=== PATIENT | female | born 1945 | race Caucasian/White ===

== ENCOUNTER 2023-04-28 08:23 | Outpatient (AMB) | payer MEDICARE, SELFPAY ==
--- NOTE | 2023-04-28 08:27 | MHC.OFFVIS ---
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 Patient states I have vertigo since 2018 24/ every day the only time it doesnt affect is when Im grounded or sitting dowm. Allergies nortriptyline Allergy (Unknown, Verified 04/28/23 08:31) Unknown oxycodone Allergy (Unknown, Verified 04/28/23 08:31) Unknown Medication List - Last Reconciled 04/28/23 by UYEN Harrington atorvastatin 40 mg PO DAILY cholecalciferol (vitamin D3) 25 mcg PO DAILY docusate sodium 100 mg PO DAILY levothyroxine 75 mcg PO DAILY metformin ER 500 mg PO BID metoprolol succinate ER 12.5 mg PO DAILY sodium citrate-citric acid 500-334 mg/5 mL 15 mL PO BID valsartan 240 mg PO DAILY HPI HPI Comments History of Present Illness Details Right-handed 77-yr-old female presents for neurological evaluation of: dizziness. Pt is accompanied by her , Valdo. Pt reports she started having dizziness in 2019. One day, she woke up, feeling like she could not get OOB, felt sick to her stomach, could not walk. She went immediately to [facility]- was treated for vertigo. From there, it subsided some but not fully but exacerbates at times. She describes the dizziness as a feeling of swaying, like she is trying to walk on a boat but she is not on a boat. If she stands up, she will feel dizzy and a bit lightheaded. Turning her head especially if she is in a store, can make her feel dizzy, off, overwhelmed by the lights and all the items. She has had approx 5 falls- a few she was bending over while gardening and her foot got stuck, another time she was at the bank when her foot got caught in a rut in the ground- she states she just does not know that she would fall. She has checked her BP at home for a few days- SBP 140s. Her valsartan dose was increased from 160mg qd to 240mg qd- but this has not had nay positive/negative effect. Dizziness is triggered by standing up, hot/humid days, weather changes, walking on the grass or uneven surfaces. She feels that taking the sodium citrate citri. exacerbates the dizziness. The dizziness is alleviated by holding onto something- grounding her ie holding onto the mike, the grocery cart, her husbands hands. She did have a PT vestibular eval x's 2- but this did not help. She did an 8 week course of PT for gait training about 3 yrs ago- which was helpful. Patient endorses: h/o migraine w/o aura- used to be more frequent but less often in the last few years, sleep difficulties- has GOVIND does not always use her CPAP (does not recall who her sleep provider is, her supplier is [facility]). And patient denies: diplopia, dysphagia, tremor, Brain MRI w/o, 02/2023 at [facility]: IMPRESSION: 1. Mild supratentorial white matter signal abnormality compatible with chronic microangiopathic/small vessel ischemic change. 2. Mild parenchymal volume loss/atrophy. 3. No posterior cranial fossa mass or mass effect. Any history of concussion or head injury? None Any history of significant musculoskeletal disorders? Denies nay usual neck pain Any history of cardiovascular disorders? HTN, HLD Any history of mood disorders? Anxiety Any history of coagulopathy disorders? None Any history of metabolic disorders? Diabetes- pt states it controlled- maybe not perfectly- last HgA1C 7.4%, h/o kidney stones. PFSH Surgical History (Updated 04/28/23 @ 08:35 by CORTEZ Montelongo) H/O: hysterectomy H/O breast biopsy H/O parathyroidectomy Hx of colonoscopy Family History (Updated 04/28/23 @ 08:36 by CORTEZ Montelongo) Father Cancer HTN (hypertension) Mother Cancer, colon HTN (hypertension) Diabetes Son HTN (hypertension) Diabetes Social History (Updated 04/21/23 @ 08:49 by CORTEZ Montelongo) Alcohol intake: never Patient Tobacco Use Status: Never used Tobacco Review of Systems Const All systems reviewed & are unremarkable except as noted in HPI and below Physical Exam Vital Signs: Last Vital Signs Pulse 82 04/28/23 08:30 BP 124/82 04/28/23 08:30 Pulse Ox 98 04/28/23 08:30 Oxygen Delivery Method Room Air 04/28/23 08:30 BMI result Body Mass Index 43.7 Const General: cooperative and no acute distress Orientation/consciousness: patient oriented x3 HEENT Head: Yes normocephalic Resp Effort & Inspection: normal respiratory effort and able to speak in complete sentences Neuro Other: Romberg- sways but does not lose balance. Able to stand slowly w/o using arms, slow steady gait, multiple steps to turn. General: patient oriented x3 and CN's II-XI intact bilaterally Motor exam (neuro): 5/5 motor strength present throughout Deep tendon reflexes (DTR's): Right triceps reflex intensity grade: 2+, Left triceps reflex intensity grade: 2+, Rt Biceps (C5, C6): 2+, Left biceps reflex intensity grade: 2+, Right brachioradialis reflex intensity grade: 2+, Left brachioradialis reflex intensity grade: 2+, Right patellar reflex intensity grade: 1+ and Left patellar reflex intensity grade: 1+ Plantar Reflex Responses: downgoing: bilateral Psych Appearance: grossly normal Mental Status: mental status grossly normal Speech and movement: Normal speech and movement present Affect: normal affect Attitude: cooperative Thought process: Normal thought process present Assessment & Plan Assessment & Plan (1) Dizziness: Code(s): R42 - Dizziness and giddiness (2) Lightheadedness: Code(s): R42 - Dizziness and giddiness Plan For not right in space dizziness and lightheadedness: Discussed diff dx- chronic BPPV, ? atypical chronic vestibular migraine. Brain MRI showed age-related cerbral volume loss and chronic microangiopathic changes. Try adding Gatorade, or similar electrolyte replacement drink, 16-20oz qd. Continue to use cane on uneven surfaces. Pt advised to try PT vestibular tx again- advised it may take a few sessions to fully assess or see results. f/u in 3 months or sooner or prn. Orders: Orders PT Evaluation and Treatment 04/28/23 R42 - Dizziness and giddiness Coding Level of Care Code New Pt Level 4 (36989) Diagnoses Dizziness R42 Lightheadedness R42
[2023-04-28 08:30] VITALS: BP 124/82; PULSE 82; O2SAT 98; BMI 43.7
== END 2023-04-28 09:56 | disposition home or self-care (01) ==
PROVIDERS: PCP Family Medicine; Visit Provider Nurse Practitioner Family
DX: R42 Dizziness and giddiness (principal)
CPT/HCPCS: 99204

== ENCOUNTER → 2023-04-28 08:23 | Outpatient (BNVA) | payer MEDICARE, SELFPAY | PROVIDERS: PCP Family Medicine; Visit Provider Nurse Practitioner Family ==

== ENCOUNTER 2023-08-12 07:52 | Outpatient (AMB) | payer MEDICARE, SELFPAY ==
--- NOTE | 2023-08-12 07:57 | MHC.OFFVIS ---
Intake Vital Signs 08/12/23 07:58 Height 5 ft 1 in Weight 236 lb BMI 44.6 BP 140/78 H Blood Pressure Location Rt brachial Position Sitting Pulse 81 Pulse Source Pulse Oximeter Pulse Oximetry (%) 98 Oxygen Delivery Method Room Air Intake Visit Reasons: 3 mon f/v-[id number] Intake Note: Patient presents for 3 month follow up dizziness. I't's better since Im going to rehab, they are wonderful Allergies nortriptyline Allergy (Unknown, Verified 08/12/23 08:00) Unknown oxycodone Allergy (Unknown, Verified 08/12/23 08:00) Unknown HPI HPI Comments History of Present Illness Details 78-yr-old female presents for f/u visit, accompanied by her Pt denies any significant interval medical changes. Dizziness is better since doing PT. She may have some dizziness when she has a mild headache - more so when she there are weather changes. She had one interval fall- around the time she started PT, was going around a couch- per , when her feet crossed and then she just fell forward. Maybe she was a bit dizzy. Her had to help her get up, he was concerned as it was difficult to pull her up off the ground. Otherwise, her walking is better- not shuffling as much. She notes that her PT has helped her to breathe more consciously when walking- which helps her to be able to walk better, even w/o the cane. She is trying to be more mindful of turning her head slowly- as this can trigger dizziness or is worried that it will trigger dizziness. She can still have orthostatic lightheadedness- but pauses upon standing which helps. May need an efternoon power nap/rest- as she gets tired, more liekly to shuffle when tired in the afternoon. PFSH Surgical History H/O: hysterectomy H/O breast biopsy H/O parathyroidectomy Hx of colonoscopy Family History Father Cancer HTN (hypertension) Mother Cancer, colon HTN (hypertension) Diabetes Son HTN (hypertension) Diabetes Social History Alcohol intake: never Patient Tobacco Use Status: Never used Tobacco Review of Systems Const All systems reviewed & are unremarkable except as noted in HPI and below Physical Exam Vital Signs: Last Vital Signs Pulse 81 08/12/23 07:58 BP 140/78 H 08/12/23 07:58 Pulse Ox 98 08/12/23 07:58 Oxygen Delivery Method Room Air 08/12/23 07:58 BMI result Body Mass Index 44.6 Const General: cooperative and no acute distress Orientation/consciousness: patient oriented x3 HEENT Head: Yes normocephalic Resp Effort & Inspection: normal respiratory effort and able to speak in complete sentences Neuro Other: Stands slowly, better stride, steady gait w/o cane. General: patient oriented x3 and CN's II-XI intact bilaterally Cognition (Neuro): normal cognition Motor exam (neuro): 5/5 motor strength present throughout Psych Appearance: grossly normal Mental Status: mental status grossly normal Speech and movement: Normal speech and movement present Affect: normal affect Attitude: cooperative Thought process: Normal thought process present Assessment & Plan Assessment & Plan (1) Dizziness: Code(s): R42 - Dizziness and giddiness (2) Lightheadedness: Code(s): R42 - Dizziness and giddiness Plan For not right in space dizziness, lightheadedness, gait diff: Continue PT, PT exercises. Stand and change positions slowly Advised pt to ask her PT for tips on rising from a fall Gatorade, or similar electrolyte replacement drink, 16-20oz qd. Continue to use cane on uneven surfaces. f/u in 4-5 months or sooner or prn. Coding Level of Care Code Est Pt Level 3 (27734) Diagnoses Dizziness R42 Lightheadedness R42
[2023-08-12 07:58] VITALS: BP 140/78; PULSE 81; O2SAT 98; BMI 44.6
== END 2023-08-12 08:56 | disposition home or self-care (01) ==
PROVIDERS: PCP Family Medicine; Visit Provider Nurse Practitioner Family
DX: R42 Dizziness and giddiness (principal)
CPT/HCPCS: 99213

== ENCOUNTER → 2023-08-12 07:52 | Outpatient (BNVA) | payer MEDICARE, SELFPAY | PROVIDERS: PCP Family Medicine; Visit Provider Nurse Practitioner Family | DX: R42 Dizziness and giddiness (principal) | CPT/HCPCS: 99212 ==

== ENCOUNTER 2023-12-24 07:50 | Outpatient (AMB) | payer MEDICARE, SELFPAY ==
[2023-12-24 07:52] VITALS: BP 138/70; PULSE 77; O2SAT 99; BMI 42.1
--- NOTE | 2023-12-24 07:52 | A.OFFVIS_ITS ---
Vital Signs 12/24/23 07:52 Height 5 ft 1 in Weight 223 lb BMI 42.1 BP 138/70 Blood Pressure Location Rt brachial Position Sitting Pulse 77 Pulse Source Pulse Oximeter Pulse Oximetry (%) 99 Oxygen Delivery Method Room Air Intake Visit Reasons: 4M follow up-LVM Intake Note: Patient presents for 4 month follow up. Allergies nortriptyline Allergy (Unknown, Verified 12/24/23 07:55) Unknown oxycodone Allergy (Unknown, Verified 12/24/23 07:55) Unknown HPI Comments Details: 78-yr-old female presents for f/u visit. Pt denies any significant interval medical changes. Pt reports she recently had adjustments to her BP med regimen d/t BP was running higher. She still has dizziness and lightheadedness, feels she is better able to manage it now. She can be lightheaded upon standing. She tried Gatorade- found the it to have to much sugar. She has not had any severe bouts of dizziness a/w N/V. Pt reports her gait is better since she completed PT. She is not shuffling any more. She is intentionally breathing and picking up her feet while walking. She is usually able to walk w/o a cane. She may need to use her cane more when it is more humid or a storm is coming (in the winter as well)- as this triggers more dizziness/lightheadedness. She endorses some sensitivity to light. She states she does not have a lot of headaches anymore. Has a h/o migraine a/w photophobia and activity intolerance- usually r/t menses- but decreased and then stopped once she went through menopause. She has diabetes- she is able to feel the ground when walking. PFSH Surgical History H/O: hysterectomy H/O breast biopsy H/O parathyroidectomy Hx of colonoscopy Family History Father Cancer HTN (hypertension) Mother Cancer, colon HTN (hypertension) Diabetes Son HTN (hypertension) Diabetes Social History Alcohol intake: never Patient Tobacco Use Status: Never used Tobacco Physical Exam Vital Signs: Last Vital Signs Pulse 77 12/24/23 07:52 BP 138/70 12/24/23 07:52 Pulse Ox 99 12/24/23 07:52 Oxygen Delivery Method Room Air 12/24/23 07:52 BMI result Body Mass Index 42.1 Const General: cooperative and no acute distress Orientation/consciousness: patient oriented x3 Resp Effort & Inspection: normal respiratory effort and able to speak in complete sentences Neuro Other: Finger-Nose Intact Stands slowly, short, wide based gait- steady w/wo cane. General: patient oriented x3 Cranial nerves: Yes CN's II-XII intact bilaterally Cognition (Neuro): normal cognition Psych Appearance: grossly normal Mental Status: mental status grossly normal Speech and movement: Normal speech and movement present Affect: normal affect Attitude: cooperative Assessment & Plan Assessment & Plan (1) Dizziness: Code(s): R42 - Dizziness and giddiness Category: Medical (2) Lightheadedness: Code(s): R42 - Dizziness and giddiness Category: Medical Plan For not right in space dizziness, lightheadedness, gait diff: Discussed that as pt reports she has increased dizziness w/ humidity and barometric changes and a h/o migraine- this raises possibility that at least some component of her s/s may be d/t an atypical vestibular migraine w/o head ache. Pt is on metoprolol- which may confound presenting migraine tx. She did not tolerate Gatorade. Try alternate sugar-free electrolyte replacement drink, 16-20oz qd. If this is ineffective, consider trying acute/preventive vestibular migraine tx. Continue PT exercises. Pt encouraged to try a local excercise class for older adults- such as at the [facility] or her local senior centers. Stand and change positions slowly Continue to use cane on uneven surfaces. Future considerations- trial of amitryptiline or sertraline w/wo a gepant. f/u in 4-5 months or sooner or prn. Coding Level of Care Code Est Pt Level 4 (89389) Diagnoses Dizziness R42 Lightheadedness R42
== END 2023-12-24 09:04 | disposition home or self-care (01) ==
PROVIDERS: PCP Family Medicine; Visit Provider Nurse Practitioner Family
DX: R42 Dizziness and giddiness (principal)
CPT/HCPCS: 99214

== ENCOUNTER → 2023-12-24 07:50 | Outpatient (BNVA) | payer MEDICARE, SELFPAY | PROVIDERS: PCP Family Medicine; Visit Provider Nurse Practitioner Family | DX: R42 Dizziness and giddiness (principal) | CPT/HCPCS: 99212 ==

== ENCOUNTER 2024-10-11 09:42 | Outpatient (AMB) | payer MEDICARE, SELFPAY ==
[2024-10-11 10:10] VITALS: BP 142/80; PULSE 85; O2SAT 97; BMI 40.8
--- NOTE | 2024-10-11 10:10 | A.OFFVIS_ITS ---
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 Patient is accompanied by her Pt denies any significant interval medical changes. Pt reports she is overall doing better. Her feels that dizziness symptoms may not be better, however she is better able to manage. She still has dizziness and lightheadedness, feels she is still better able to manage it now. She is trying to drink better, now taking more water, maybe up to 48 oz a day. feels she could drink more fluids. She does like fruits such as watermelon in the warmer weather. She can be lightheaded upon standing= tries to stand up slowly and cause before moving. She has not had any severe bouts of dizziness a/w N/V. Pt reports her gait is better since she completed PT. She is not shuffling any more. She is intentionally breathing and picking up her feet while walking. She does her home PT exercises almost every morning. She is usually able to walk w/o a cane. Though may use a walking stick when walking in her backyard. She may need to use her cane more when it is more humid or a storm is coming (in the winter as well)- as this triggers more dizziness/lightheadedness. She states she is not as sensitive to light She states she does not have a lot of headaches anymore. Has a h/o migraine a/w photophobia and activity intolerance- usually r/t menses- but decreased and then stopped once she went through menopause. She has diabetes- she is still able to feel the ground when walking. PFSH Surgical History H/O: hysterectomy H/O breast biopsy H/O parathyroidectomy Hx of colonoscopy Family History Father Cancer HTN (hypertension) Mother Cancer, colon HTN (hypertension) Diabetes Son HTN (hypertension) Diabetes Social History Alcohol intake: never Patient Tobacco Use Status: Never used Tobacco Physical Exam Vital Signs: Last Vital Signs Pulse 85 10/11/24 10:10 BP 142/80 H 10/11/24 10:10 Pulse Ox 97 10/11/24 10:10 Oxygen Delivery Method Room Air 10/11/24 10:10 BMI result Body Mass Index 40.8 Const General: cooperative and no acute distress Orientation/consciousness: patient oriented x3 Resp Effort & Inspection: normal respiratory effort and able to speak in complete sentences Neuro Other: Finger-Nose Intact BUE and BLE light touch sensation intact Stands slowly, short, wide based gait- steady w/wo cane. General: patient oriented x3 Cranial nerves: Yes CN's II-XII intact bilaterally Cognition (Neuro): normal cognition Motor exam (neuro): 5/5 motor strength present throughout Psych Appearance: grossly normal Mental Status: mental status grossly normal Speech and movement: Normal speech and movement present Affect: normal affect Attitude: cooperative Assessment & Plan Assessment & Plan (1) Dizziness: Code(s): R42 - Dizziness and giddiness Category: Medical (2) Lightheadedness: Code(s): R42 - Dizziness and giddiness Category: Medical Plan For not right in space dizziness, lightheadedness, gait diff: Improved, however as pt reports she has increased dizziness w/ humidity and barometric changes and a h/o migraine- this raises possibility that at least some component of her s/s may be d/t an atypical vestibular migraine w/o headache. Pt is on metoprolol- which may confound presenting migraine tx. She previously did not tolerate Gatorade. Try to increase fluid intake to at 64 oz per day. This may include water, occasional coffee use, and hi water content fruits and vegetables. If symptoms worsened, consider trying acute/preventive vestibular migraine tx. Continue home PT exercises. Stand and change positions slowly Continue to use cane or walking stick on uneven surfaces. Future considerations- trial of amitryptiline or sertraline w/wo a gepant. f/u in 12 months or sooner or prn. Coding Level of Care Code Est Pt Level 3 (83903) Diagnoses Dizziness R42 Lightheadedness R42
--- OUTSIDE RECORDS SUMMARY | 2024-10-11 10:37 | XMS_ITS | Clinical Summary ---
Author Organization [facility] Address [address] [facility] [address] [place] [address] Phone Care Team Providers Care Leather Sponger Name Role Phone Humza Gan Primary Care Provider [phone] Allergies Active Allergy Reactions Criticality Noted Date Comments Lisinopril Other (see comments) 08/15/2021 Nortriptyline 08/15/2021 Other Other (see comments) 08/15/2021 Oxycodone 08/15/2021 Medications aspirin (Bora Aspirin EC Low Dose) 81 MG EC tablet Comments: Patient Notes: TAKE 1 TABLET BY MOUTH EVERY DAY Duration: 30 Active levothyroxine (SYNTHROID, LEVOTHROID) 75 MCG tablet Take 75 mcg by mouth 04/06/2021 Active potassium citrate 10 MEQ (1080 MG) CR tablet 08/02/2021 Active Cholecalciferol 50 MCG (2000 UT) capsule Take 1 capsule by mouth 1 (one) time each day Active docusate sodium (Colace) 100 MG capsule Take 100 mg by mouth 11/01/2020 Active metoprolol succinate XL (TOPROL XL) 25 MG 24 hr tablet Take 1 tablet by mouth 1 (one) time each day Active atorvastatin (LIPITOR) 40 MG tablet TAKE 1 TABLET BY MOUTH EVERY DAY FOR 90 DAYS 08/24/2022 Active metFORMIN XR (GLUCOPHAGE-XR) 500 MG 24 hr tablet Take 1,500 mg by mouth 3 (three) times a week 10/24/2023 Active valsartan (Diovan) 320 MG tablet Take 1 tablet (320 mg total) by mouth 1 (one) time each day 90 tablet 3 10/29/2023 Active Active Problems Problem Noted Date Diagnosed Date Patient encounter status 09/11/2022 Arthritis 08/15/2021 Essential hypertension 08/15/2021 Chronic kidney disease stage 3 08/15/2021 Disorder of carotid artery 08/15/2021 Overview (08/15/2021): [facility] vascular Vertigo 08/15/2021 Gastro-esophageal reflux disease with esophagiti s 08/15/2021 Hyperlipidemia 08/15/2021 Malignant neoplasm of thyroid gland 08/15/2021 Overview (08/15/2021): papillary Morbid obesity 08/15/2021 Papillary thyroid carcinoma 08/15/2021 Sleep apnea 08/15/2021 Overview (08/15/2021): CPAP Type 2 diabetes mellitus 08/15/2021 Encounters Date Type Department Care Team Description 10/06/2024 1:30 PM EST Office Visit [facility] [address] [place] [address] Osmel Baker MD Chronic kidney disease, stage 2 (mild) (Primary Dx); Hypertension; Nephrolithiasis 09/27/2024 Orders Only [facility] [address] [phone] Osmel Baker MD from Last 3 Months Immunizations Name Administration Dates Next Due Influenza Split High Dose Pr eservative Free IM 2017,04/23/2016 Influenza Vaccine, Quadrival ent, Adjuvanted 04/18/2021 Influenza Whole 05/17/2019 Influenza, Quadrivalent, Pre servative Free 05/13/2019 Influenza, Trivalent, Adjuvanted 04/28/2018 Influenza, Unspecified 04/19/2022,2020,05/13/2019,04/28,2017,04/23/2016 Pfizer SARS-COV-2 12/12/2021,,10/31/2020,10/13 Pneumococcal Conjugate 13-Valent 11/24/2014 Pneumococcal Polysaccharide 07/04/2011 SARS-CoV-2, Unspecified 06/03/2022 Family History Relation Status Comments Father Mother Social History Tobacco Use Types Packs/Day Years Used Date Smoking Tobacco: Never Smokeless Tobacco: Never Tobacco Cessation:Counseling Given: No Alcohol Use Standard Drinks/Week Comments No 0 (1 standard drink = 0.6 oz pur e alcohol) Comments Unknown Sex and Gender Information Value Date Recorded Sex Assigned at Not on file Legal Sex Female 4:54 PM EST Gender Identity Not on file Sexual Orientation Not on file Last Filed Vital Signs Vital Sign Reading Time Taken Comments Blood Pressure 127/70 10/06/2024 1:12 PM EST Pulse 89 10/06/2024 1:12 PM EST Temperature - - Respiratory Rate - - Oxygen Saturation 96% 08/15/2021 2:12 PM EST Inhaled Oxygen Concentration - - Weight 96.6 kg (213 lb) 10/06/2024 1:12 PM EST Height 154.9 cm (5' 1 ) 12/23/2018 12:00 PM EDT Body Mass Index 40.25 12/23/2018 12:00 PM EDT Plan of Treatment Upcoming Encounters Date Type Department Care Team (Late st Contact Info) Description 10/28/2024 Orders Only [facility] [address] [phone] Osmel Baker MD [facility] [address] [phone] Chronic kidney disease, stage 2 (mild) 10/05/2025 1:15 PM EST Office Visit [facility] [address] [place] [address] Osmel Baker MD [address] [place] [phone] Health Maintenance Due Date Last Done Comments Diabetes: Hemoglobin A1C 09/03/2020 Diabetes: Ophthalmology Exam 09/03/2020 Diabetes: Pedal Pulse Checked 09/03/2020 Diabetes: Sensory Foot Exam 09/03/2020 Diabetes: Visual Foot Exam 09/03/2020 Influenza Vaccine (#1) 2024 2, 04/18/2021, 04/18/2021, Additional history exists Pneumococcal Vaccine: 65+ Years Completed 11/24/2014, 07/04/2011 Hepatitis B Vaccine Aged Out No longe r eligible based on patient's age to complete this topic Procedures Procedure Name Priority Date/Time Associated Diagnosis Comments URINE ALBUMIN / CREATININE RATIO Routine 09/27/2024 6:16 AM EST RENAL FUNCTION PANEL Routine 09/27/2024 6:16 AM EST from Last 3 Months Results * Urine Albumin / Creatinine Ratio (09/27/2024 6:16 AM EST) Creatinine, Ur 178.9 Not Estab. mg/dL [facility] Albumin, Urine 24.0 Not Estab. ug/mL [facility] Albumin/Creatin ine Ratio 13 0 - 29 mg/g creat [facility] Comment: ? Normal: ?0 - ??29 ? Moderately increased: 30 - 300 ? Severely increased: ? >300 09/27/2024 6:16 AM EST 09/27/2024 us Osmel Baker MD LAB URINE ORDERABLES Final Resul t [email or web address] [address] [place] [address] * (ABNORMAL) Renal Function Panel (09/27/2024 6:16 AM EST) Glucose 155(H) 70 - 99 mg/dL [facility] BUN 20 8 - 27 mg/dL [facility] Creatinine 0.88 0.57 - 1.00 mg/dL [facility] eGFR CKD-EPI CR 2020 67 >59 mL/min/1.7 3 [facility] BUN/Creatinine Ratio 23 12 - 28 [facility] Sodium 142 134 - 144 mmol/L [facility] Potassium 4.4 3.5 - 5.2 mmol/L [facility] Chloride 105 96 - 106 mmol/L [facility] Bicarbonate (CO2) 20 20 - 29 mmol/L [facility] Calcium 9.3 8.7 - 10.3 mg/dL [facility] Albumin 4.3 3.8 - 4.8 g/dL [facility] Phosphorus 3.2 3.0 - 4.3 mg/dL [facility] 09/27/2024 6:16 AM EST 09/27/2024 Osmel Baker MD LAB BLOOD ORDERABLES Final Resul t [facility] [address] [place] [phone] from Last 3 Months Insurance MEDICARE [facility] MEDICARE [facility] Care Teams Leather Sponger Relationship Specialty Start Date End Date Humza Gna DO [address] [place] [address] PCP - General 08/14/20
--- OUTSIDE RECORDS SUMMARY | 2024-10-11 10:37 | XMS_ITS | Encounter Summary ---
Author Organization [facility] Address [address] [phone] Phone Care Team Providers Care Turn Down Attendant Name Role Phone Humza Gan Primary Care Provider [phone] Encounter Details Date Type Department Care Team (Late st Contact Info) Description 09/27/2024 Orders Only [facility] [address] [phone] Osmel Baker MD [address] [phone] Social History Tobacco Use Types Packs/Day Years Used Date Smoking Tobacco: Never Smokeless Tobacco: Never Alcohol Use Standard Drinks/Week Comments No 0 (1 standard drink = 0.6 oz pur e alcohol) Comments Unknown Sex and Gender Information Value Date Recorded Sex Assigned at Not on file Legal Sex Female 4:54 PM EST Gender Identity Not on file Sexual Orientation Not on file documented as of this encounter Plan of Treatment Upcoming Encounters Date Type Department Care Team (Late st Contact Info) Description 10/28/2024 Orders Only [facility] [place] [address] [place] [phone] Osmel Baker MD [address] [phone] Chronic kidney disease, stage 2 (mild) 10/05/2025 1:15 PM EST Office Visit [facility] [address] [place] [phone] Osmel Baker MD [address] [phone] documented as of this encounter Procedures Procedure Name Priority Date/Time Associated Diagnosis Comments URINE ALBUMIN / CREATININE RATIO Routine 09/27/2024 6:16 AM EST RENAL FUNCTION PANEL Routine 09/27/2024 6:16 AM EST documented in this encounter Results * Urine Albumin / Creatinine Ratio (09/27/2024 6:16 AM EST) Creatinine, Ur 178.9 Not Estab. mg/dL [facility] Albumin, Urine 24.0 Not Estab. ug/mL [facility] Albumin/Creatin ine Ratio 13 0 - 29 mg/g creat [facility] Comment: ? Normal: ?0 - ??29 ? Moderately increased: 30 - 300 ? Severely increased: ? >300 09/27/2024 6:16 AM EST 09/27/2024 Osmel Baker MD LAB URINE ORDERABLES Final Resul t [facility] [address] [place] [phone] * (ABNORMAL) Renal Function Panel (09/27/2024 6:16 AM EST) Glucose 155(H) 70 - 99 mg/dL [facility] BUN 20 8 - 27 mg/dL [facility] Creatinine 0.88 0.57 - 1.00 mg/dL [facility] eGFR CKD-EPI CR 2020 67 >59 mL/min/1.7 3 [facility] BUN/Creatinine Ratio 23 12 - 28 [facility] Sodium 142 134 - 144 mmol/L [facility] Potassium 4.4 3.5 - 5.2 mmol/L [facility] Chloride 105 96 - 106 mmol/L [facility] Bicarbonate (CO2) 20 20 - 29 mmol/L [facility] Calcium 9.3 8.7 - 10.3 mg/dL [facility] Albumin 4.3 3.8 - 4.8 g/dL [facility] Phosphorus 3.2 3.0 - 4.3 mg/dL [facility] 09/27/2024 6:16 AM EST 09/27/2024 us Osmel Baker MD LAB BLOOD ORDERABLES Final Resul t [facility] [address] [place] [address] documented in this encounter Visit Diagnoses Not on filedocumented in this encounter Care Teams Turn Down Attendant Relationship Specialty Start Date End Date Humza Gan DO [address] [place] [phone] PCP - General 08/14/20 documented as of this encounter
--- OUTSIDE RECORDS SUMMARY | 2024-10-11 10:37 | XMS_ITS | Encounter Summary ---
Author Organization [facility] Address [address] [place] [phone] Phone Care Team Providers Care Field Logistics Coordinator Name Role Phone Humza Gan Primary Care Provider [phone] Reason for Visit * Reason Comments Chronic Kidney Disease Encounter Details Date Type Department Care Team (Late st Contact Info) Description 10/06/2024 1:30 PM EST Office Visit [facility] [address] [place] [address] Osmel Baker MD [address] [phone] Chronic kidney disease, stage 2 (mild) (Primary Dx); Hypertension; Nephrolithiasis Social History Tobacco Use Types Packs/Day Years [...] on file documented as of this encounter Last Filed Vital Signs Vital Sign Reading Time Taken Comments Blood Pressure 127/70 10/06/2024 1:12 PM EST Pulse 89 10/06/2024 1:12 PM EST Temperature - - Respiratory Rate - - Oxygen Saturation - - Inhaled Oxygen Concentration - - Weight 96.6 kg (213 lb) 10/06/2024 1:12 PM EST Height - - Body Mass Index 40.25 12/23/2018 12:00 PM EDT documented in this encounter Progress Notes * Osmel Baker MD - 10/06/2024 1:30 PM EST [facility] Patient Name: Richa Espinal, Female Date of : 1945, 79 y.o. Date: 10/06/2024 Referring MD: Humza Gan DO PCP: Humza Gan DO Chief Complaint: Chief Complaint Patient presents with Chronic Kidney Disease Reason For Visit: I had there pleasure of seeing your patient for follow up of CKD. The following portions of the patient's chart were reviewed in this encounter and updated as appropriate: Allergies Meds Problems Med Hx Surg Hx Fam Hx Constitutional: Negative for chills, fever, malaise/fatigue and weight loss. HENT: Negative for ear pain, hearing loss and tinnitus. Eyes: Negative for blurred vision, double vision, photophobia and pain. Respiratory: Negative for cough, hemoptysis, sputum production, shortness of breath and wheezing. Cardiovascular: Negative for chest pain, palpitations, orthopnea, claudication and leg swelling. Gastrointestinal: Negative for abdominal pain, diarrhea, nausea and vomiting. Genitourinary: Negative for dysuria, flank pain, frequency, hematuria and urgency. Musculoskeletal: Negative for myalgias. Skin: Negative for itching and rash. Neurological: Negative for dizziness, tingling and headaches. Psychiatric/Behavioral: Negative for depression. Full 13 point review of systems unremarkable except as noted above. Past Medical History: Diagnosis Date Endometrial carcinoma (HCC) Essential hypertension Hyperlipidemia Hyperparathyroidism (HCC) Type 2 diabetes mellitus (HCC) Past Surgical History: Procedure Laterality Date HYSTERECTOMY THYROIDECTOMY Social History Tobacco Use Smoking status: Never Smokeless tobacco: Never Substance Use Topics Alcohol use: No History reviewed. No pertinent family history. Current Outpatient Medications Medication Sig Dispense Refill aspirin (Bora Aspirin EC Low Dose) 81 MG EC tablet Comments: Patient Notes: TAKE 1 TABLET BY MOUTH EVERY DAY Duration: 30 atorvastatin (LIPITOR) 40 MG tablet TAKE 1 TABLET BY MOUTH EVERY DAY FOR 90 DAYS Cholecalciferol 50 MCG (2000 UT) capsule Take 1 capsule by mouth 1 (one) time each day docusate sodium (Colace) 100 MG capsule Take 100 mg by mouth levothyroxine (SYNTHROID, LEVOTHROID) 75 MCG tablet Take 75 mcg by mouth metFORMIN XR (GLUCOPHAGE-XR) 500 MG 24 hr tablet Take 1,500 mg by mouth 3 (three) times a week metoprolol succinate XL (TOPROL XL) 25 MG 24 hr tablet Take 1 tablet by mouth 1 (one) time each day potassium citrate 10 MEQ (1080 MG) CR tablet valsartan (Diovan) 320 MG tablet Take 1 tablet (320 mg total) by mouth 1 (one) time each day 90 tablet 3 No current facility-administered medications for this visit. Allergies Allergen Reactions Lisinopril Other (see comments) Nortriptyline Other Other (see comments) Oxycodone Objective: Vitals: 10/06/24 1312 BP: 127/70 Pulse: 89 Weight: 213 lb (96.6 kg) Vitals reviewed. Constitutional: She is oriented to person, place, and time. She does not appear ill. HEENT: Mouth/Throat: Oropharynx is clear and moist. Eyes: Pupils are equal, round, and reactive to light. Neck: No JVD present. Cardiovascular: Regular rhythm. She exhibits edema. Pulmonary/Chest: Breath sounds normal. Abdominal: Soft. There is no abdominal tenderness. Musculoskeletal: Normal range of motion. Neurological: She is alert and oriented to person, place, and time. Skin: Skin is warm. Psychiatric: She has a normal mood and affect. eGFR Date Value Ref Range Status 04/05/2021 68 Final Est GFR Non Date Value Ref Range Status 08/12/2022 74 ML/MIN/1.73 M2 Final Comment: Creatinine based estimated glomerular filtration (eGFR) in adults is calculated using the National [employer] recommended 2020 CKD-EPI equation. Estimates GFR from serum creatinine, age and sex. Testing performed or reported by [facility], a Service of [facility], [address] [place] [address] Samy Torres MD, Fashion Editor [facility]# [id number] Chemistry Lab Units 09/27/24 0616 10/16/23 0731 CREATININE mg/dL 0.88 0.98 BUN mg/dL 20 19 BUN / CREAT RATIO 23 19 GLUCOSE mg/dL 155* 166* POTASSIUM mmol/L 4.4 4.4 SODIUM mmol/L 142 143 CO2 mmol/L 20 22 CHLORIDE mmol/L 105 104 ALBUMIN g/dL 4.3 4.3 URIC ACID mg/dL -- 4.3 Bone Mineral Lab Units 09/27/24 0616 10/16/23 0731 CALCIUM mg/dL 9.3 9.7 PHOSPHORUS mg/dL 3.2 4.0 Urine Lab Units 09/27/24 0616 10/16/23 0731 ALB MG/G CREAT UR mg/g creat 13 12 No lab exists for component: SPECGRAV , GLUCOSEUR , BILIRUBINUR , RBCUR , UPROTEIN , LEUKOCYTESUR , NITRITE PLAN: Assessment & Plan 1. Chronic kidney disease, stage 2 (mild) 2. Hypertension 3. Nephrolithiasis Kidney function is normal. She does not have proteinuria anymore. Change in volume status against the back drop of angiotensin receptor blockers and senescent kidneys have caused disruption of the auto regulation of the kidneys. She has mild CKD due to: -residual kidney function loss from prior BILLY (she had nephrolithiasis) -nephron loss due to aging -hypertensive nephrosclerosis There is a history of kidney stone, lithotripsy and also required placement of ureteral stent. Blood pressure is on target. She is on valsartan. She has near normal kidney function and no proteinuria and would hold off SGTL2i at this juncture. REC RAASi Follow kidney function and electrolytes Urine protein to Creatinine ratio avoid NSAID low sodium diet Yearly f/u Orders Placed This Encounter Renal function panel Urine albumin / creatinine ratio Return in 1 year (on 10/06/2025). Osmel Baker MD documented in this encounter Plan of Treatment Upcoming Encounters Date Type Department Care Team (Late st Contact Info) Description 10/28/2024 Orders Only [facility] [place] [address] [place] [phone] Osmel Baker MD [address] [phone] Chronic kidney disease, stage 2 (mild) 10/05/2025 1:15 PM EST Office Visit [facility] [address] [place] [phone] Osmel Baker MD [address] [phone] Scheduled Orders Name Type Priority Associated Diagnoses Orde r Schedule Renal function panel Lab Routine Chronic kidney disease, stage 2 (mild) Expected: 10/06/2025, Expires: 11/06/2025 Urine albumin / creatinine ratio Lab Routine Chronic kidney disease, stage 2 (mild) Expected: 10/06/2025, Expires: 11/06/2025 documented as of this encounter Visit Diagnoses Diagnosis Chronic kidney disease, stage 2 (mild)- Primary Hypertension Nephrolithiasis Chronic kidney disease, stage 2 (mild) documented in this encounter Care Teams Field Logistics Coordinator Relationship Specialty Start Date End Date Humza Gan DO [address] [place] [address] PCP - General 08/14/20 documented as of this encounter
== END 2024-10-11 10:57 | disposition home or self-care (01) ==
PROVIDERS: PCP Family Medicine; Visit Provider Nurse Practitioner Family
DX: R42 Dizziness and giddiness (principal)
CPT/HCPCS: 99213

== ENCOUNTER → 2024-10-11 09:42 | Outpatient (BNVA) | payer MEDICARE, SELFPAY | PROVIDERS: PCP Family Medicine; Visit Provider Nurse Practitioner Family | DX: R42 Dizziness and giddiness (principal) | CPT/HCPCS: 99212 ==